=== PATIENT | female | born 1960 | race Caucasian/White ===

== ENCOUNTER 2021-04-03 01:47 | Outpatient (CLI) | payer BC, SELFPAY ==
--- NOTE | 2021-04-03 | DI.RAD_ITS ---
Exam(s) XR KNEE RT 4V AP,LAT,JORDAN,PAT EXAM: XR KNEE RT 4V AP,LAT,JORDAN,PAT CLINICAL HISTORY: RT KNEE PAIN. TECHNIQUE: 2D digital imaging was performed. COMPARISON: No exams were available for comparison FINDINGS: BONES: No acute fracture is present. No bony destructive lesion is seen. JOINTS: The knee is normally aligned. No joint effusion is seen. SOFT TISSUE: Normal. IMPRESSION: Unremarkable radiographs of the right knee. DATA REPOSITORY: RADIATION DOSE DELIVERED:
== END 2021-04-03 02:07 ==
PROVIDERS: PCP Nurse Practitioner Family; Visit Provider Chiropractor Orthopedic
DX: M25.561 Pain in right knee (principal)
CPT/HCPCS: 73564

== ENCOUNTER 2021-05-16 01:39 | Outpatient (CLI) | payer BC, SELFPAY ==
--- NOTE | 2021-05-16 | DI.RAD_ITS ---
Exam(s) XR HIP PELVIS ADULT BL EXAM: XR HIP PELVIS ADULT BL CLINICAL HISTORY: BILAT HIP PAIN, M25.551,M25.552,CHRONIC HIP AND PELVIC PAIN. TECHNIQUE: 2D digital imaging was performed. COMPARISON: MR MRI R LOWER JOINT WO CONT from 01/30/2015 MR MRI R LOWER JOINT WO CONT from 01/30/2015 FINDINGS: There is no evidence of pelvic nor hip fracture. No degenerative changes evident in either hip. No joint space narrowing nor osteophytes. Bone density is normal. There is a sclerotic bone lesion in the right side of the sacrum which is probably a benign bone island. This appears to have been prese nt on a pelvic MRI study of January 2015 (coronal T1 images). No other focal bone findings evident. IMPRESSION: DATA REPOSITORY: RADIATION DOSE DELIVERED:
--- NOTE | 2021-05-16 | DI.RAD_ITS ---
Exam(s) XR SHOULDER RT COMPLETE 2+V EXAM: XR SHOULDER RT COMPLETE 2+V CLINICAL HISTORY: RT SHOULDER PAIN, M25.511,CHRONIC, DECREASED RANGE OF MOTION. TECHNIQUE: 2D digital imaging was performed. COMPARISON: No exams were available for comparison FINDINGS: There is no evidence of fracture or dislocation nor abnormal soft tissue calcifications. The subacro mial space is not diminished. There are no degenerative changes in the glenohumeral and AC joints. Bone density is normal. No osseous lesions evident. IMPRESSION: DATA REPOSITORY: RADIATION DOSE DELIVERED:
--- NOTE | 2021-05-16 | DI.MAMMO_ITS ---
Exam(s) MAMMO SCREENING EXAM: MAMMO SCREENING CLINICAL HISTORY: SCREENING, Z12.31. TECHNIQUE: Bilateral full field digital CC and MLO mammographic images were obtained with 3D tomosyn thesis and utilizing computer aided detection (CAD). COMPARISON: Prior outside mammogram performed May 2020 FINDINGS: The fibroglandular tissue pattern is moderately dense, is somewhat decreasing the sensitivity of the mammogram for finding in underlying lesions. In the left breast on 3D MLO imaging there is an asymmetric density-possible nodule located 2 cm in f rom the nipple measuring approximately 4 x 4 millimeters. No obvious new findings in the right breast. No malignant-appearing microcalcification groups in either breast. No new architectural distortion o r skin thickening-traction IMPRESSION: Moderately dense fibroglandular tissue. No obvious radiographic evidence of malignancy in the right breast. Asymmetric density-possible nodule in the left breast as described above. Spot compression view and ultrasound recommended. BI-RADS Category 0 - Assessment Incomplete: Need additional imaging evaluation Breast Density - Category C - Heterogeneously dense Breast density Category C or D implies that the patient has dense breast tissue. Dense breast tissue can make it harder to find cancer on a mammogram. Dense breast tissue is also associated with an incr eased risk of breast cancer. This information about the result of the mammogram report was provided to the patient to raise their awareness. Use this report when you speak with the patient about their risks for breast cancer, which includes their family history. At that time, you may recommend additional screening tests (Ultrasoun d or MRI) as these tests may add significant information. A negative radiographic report should not delay biopsy if a dominant or clinically suspicious mass is present. Up to ten percent of cancers are not identified on mammography. A negative report may reinforce clinical impression. Adenosis and dense breasts may obscure an underlying neoplasm. False positive reports average 6 to 10%. Patient will receive a letter notifying them of these results.
== END 2021-05-16 01:59 ==
PROVIDERS: PCP Nurse Practitioner Family; Visit Provider Nurse Practitioner Family
DX: Z12.31 Encounter for screening mammogram for malignant neoplasm of breast (principal); R92.8 Other abnormal and inconclusive findings on diagnostic imaging of breast; G89.29 Other chronic pain; M25.511 Pain in right shoulder; M25.552 Pain in left hip; M25.551 Pain in right hip; M89.9 Disorder of bone, unspecified
CPT/HCPCS: 73521; 77063; 77067; 73030

== ENCOUNTER 2021-05-31 04:09 | Outpatient (CLI) | payer BC, SELFPAY ==
--- NOTE | 2021-05-31 | DI.MAMMO_ITS ---
Exam(s) MG MAMMO SCREEN CALL BACK UNI US BREAST LT LIMITED EXAM: US BREAST LT LIMITED CLINICAL HISTORY: F/U MAMMO,LT ASYMMETRIC DENSITY, DENSE TISSUE, ? NODULE TECHNIQUE: Ultrasound performed using standard protocol. COMPARISON: No exams were available for comparison FINDINGS: Additional mammographic views of the left breast and left breast ultrasound are interpreted in conjun ction. These examinations were obtained to evaluate questionable area of nodularity seen on MLO view of recent mammograms. Additional mammographic views fail to show a discrete mass. Breast ultrasoun d shows no evidence of a mass or cyst. IMPRESSION: No specific evidence of malignancy at this time. Follow-up unilateral left breast mammogram recommen ded in 6 months. BI-RADS Cat 3 - 6 month - Probably Benign Finding: Recommend follow-up imaging in 6 months Breast Density - Category C - Heterogeneously dense DATA REPOSITORY:
== END 2021-05-31 04:29 ==
PROVIDERS: PCP Nurse Practitioner Family; Visit Provider Nurse Practitioner Family
DX: R92.8 Other abnormal and inconclusive findings on diagnostic imaging of breast (principal)
CPT/HCPCS: 76642; 77063; 77067

== ENCOUNTER 2022-01-30 02:30 | Outpatient (CLI) | payer BC, SELFPAY ==
--- NOTE | 2022-01-30 14:43 | DI.MAMMO_ITS ---
Exam(s) MAMMO DIAGNOSTIC UNI EXAM: MAMMO DIAGNOSTIC UNI CLINICAL HISTORY: ABNL LEFT MAMMO R92.8, 6 MO FU TECHNIQUE: Mammograms were interpreted according to the usual protocol including computer analysis w ith CAD system, tomosynthesis and C-view imaging. COMPARISON: FINDINGS: Today's examination was obtained to follow an area of questionable asymmetric density or nodularity s een in the left breast on prior examination of April 2021. A unilateral left breast mammogram was o btained today. Findings are less prominent on today's examination. No new mass or clumped microcalc ification seen in the left breast. IMPRESSION: No specific evidence of malignancy at this time. I would suggest that routine screening examination s resume with a bilateral mammogram in 6 months. BI-RADS Category 3 - 6 month - Probably Benign Finding: Recommend follow-up mammography in 6 months Breast Density - Category C - Heterogeneously dense
== END 2022-01-30 02:50 ==
PROVIDERS: PCP Nurse Practitioner Family; Visit Provider Nurse Practitioner Family
DX: R92.8 Other abnormal and inconclusive findings on diagnostic imaging of breast (principal); N64.59 Other signs and symptoms in breast
CPT/HCPCS: 77061; 77065; G0279

== ENCOUNTER → 2022-08-28 02:41 | Outpatient (CLI) | payer BC, SELFPAY ==
--- NOTE | 2022-08-28 15:15 | DI.MAMMO_ITS ---
Exam(s) MAMMO SCREENING EXAM: MAMMO SCREENING CLINICAL HISTORY: SCREENING, 6-MO F/U QUESTIONABLE ASYMMETRIC DENSITY LT BREAST TECHNIQUE: Mammograms were interpreted according to the usual protocol including computer analysis w [employer] CAD system, tomosynthesis and C-view imaging. COMPARISON: FINDINGS: The breasts are heterogeneously dense. No dominant mass or clumped microcalcification is identified in either breast. The current examination is compared with previous examinations including May 17 and there has been no gross interval change in appearance in comparison with the prior studies. IMPRESSION: No specific evidence of malignancy at this time. Routine screening examinations are suggested at yea rly intervals in this age group according to the ACS ACR guidelines. BI-RADS Category 1 - Negative Breast Density - Category C - Heterogeneously dense
== END ==
PROVIDERS: PCP Nurse Practitioner Family; Visit Provider Nurse Practitioner Primary Care
DX: Z12.31 Encounter for screening mammogram for malignant neoplasm of breast (principal); R92.8 Other abnormal and inconclusive findings on diagnostic imaging of breast
CPT/HCPCS: 77063; 77067

== ENCOUNTER 2025-06-02 05:27 | Outpatient (CLI) | payer BC, SELFPAY ==
--- NOTE | 2025-06-02 12:08 | DI.MAMMO_ITS ---
Exam(s) MAMMO SCREENING EXAM: MAMMO SCREENING CLINICAL HISTORY: SCREENING MAMMO Z12.31 TECHNIQUE: Mammograms were interpreted according to the usual protocol including computer analysis with CAD system, tomosynthesis and C-view imaging. COMPARISON: 2019 through 2021 FINDINGS: The breasts are composed of heterogeneously dense fibroglandular densities, Breast Density category C. No suspicious masses or suspicious microcalcifications are seen. No skin thickening or abnormal axillary lymph nodes are seen. There has been no significant change from prior exams. IMPRESSION: BI-RADS Category 1, Negative mammogram. Yearly screening mammography is recommended. Breast Density: Category C - The breasts are heterogeneously dense, which may obscure small masses. Breast density Category C or D implies that the patient has dense breast tissue. Dense breast tissue can make it harder to find cancer on a mammogram. Dense breast tissue is also associated with an increased risk of breast cancer. This information about the result of the mammogram report was provided to the patient to raise their awareness. Use this report when you speak with the patient about their risks for breast cancer, which includes their family history. At that time, you may recommend additional screening tests (Ultrasound or MRI) as these tests may add significant information. A negative radiographic report should not delay biopsy if a dominant or clinically suspicious mass is present. Up to ten percent of cancers are not identified on mammography. A negative report may reinforce clinical impression. Adenosis and dense breasts may obscure an underlying neoplasm. False positive reports average 6 to 10%.
== END 2025-06-02 05:47 ==
LOC: DI 05:27
PROVIDERS: PCP Internal Medicine; Visit Provider Internal Medicine
DX: Z12.31 Encounter for screening mammogram for malignant neoplasm of breast (principal); R92.323 Mammographic fibroglandular density, bilateral breasts; R92.333 Mammographic heterogeneous density, bilateral breasts
CPT/HCPCS: 77063; 77067

== ENCOUNTER 2025-07-06 04:30 | Outpatient (CLI) | payer BC, SELFPAY ==
--- NOTE | 2025-07-06 | DI.DEXA_ITS ---
Exam(s) XR DEXA BONE DENSITY W/WO DANIEL EXAM: XR DEXA BONE DENSITY W/WO DANIEL CLINICAL HISTORY: MENOPAUSE Z78.0 R/O OSTEOPOROSIS TECHNIQUE: COMPARISON: DEXA SCAN AXIAL from 03/21/2021 FINDINGS: Lateral Spine Image: Unremarkable. No compression deformities identified. Left hip: Total T-Score: -0.8. This compares to -1.0 on the prior examination. Total Z-Score: 0.3 T- and Z-scores: There is no evidence of osteoporosis. Lumbar Spine: Total T-Score: -2.2. This compares to -2.5 on the prior examination. Total Z-Score: -0.6 T- and Z-scores: The findings are consistent with osteopenia. There is osteoporosis in the L1 vertebral body with a T-score of -2.7. There is osteoporosis in the left forearm with a total T-score of -3.5 and a Z- score of -2.1. IMPRESSION: There is osteoporosis in the left forearm. There is also osteoporosis in the L1 vertebral body.
== END 2025-07-06 04:50 ==
PROVIDERS: PCP Internal Medicine; Visit Provider Internal Medicine
DX: Z78.0 Asymptomatic menopausal state (principal); Z12.31 Encounter for screening mammogram for malignant neoplasm of breast; R92.332 Mammographic heterogeneous density, left breast; R92.333 Mammographic heterogeneous density, bilateral breasts; M81.0 Age-related osteoporosis without current pathological fracture
CPT/HCPCS: 77080

== ENCOUNTER 2025-08-03 01:32 | Outpatient (CLI) | payer BC, SELFPAY ==
[2025-08-03 11:14] LABS: Anion Gap 5.8 mmol/L (3-11); BUN 13 mg/dL (7-18); CO2 31.2 mmol/L (21.0-32.0); Calcium 9.0 mg/dL (8.5-10.1); Chloride 101 mmol/L (98-107); Glucose 104 mg/dL (74-106); Potassium 4.2 mmol/L (3.5-5.1); Sodium 138 mmol/L (136-145); Vitamin D 25 Total 61 ng/mL (30-100)
[2025-08-05 10:02] LABS: Beta-CrossLaps (B-CTx) 366 pg/mL
[2025-08-07 16:02] LABS: Calcium, Random Ur 2 mg/dL; Creatinine, Random Ur 68 mg/dL (16 - 326)
== END 2025-08-03 01:33 | disposition home or self-care (01) ==
LOC: LBO 01:33
PROVIDERS: PCP Internal Medicine; Visit Provider Internal Medicine
DX: M81.0 Age-related osteoporosis without current pathological fracture (principal)
CPT/HCPCS: 36415; 80048; 82306; 82310; 82523; 83970; 84100